=== PATIENT | female | born 1965 | race Caucasian/White ===

== ENCOUNTER 2024-03-05 15:07 | Emergency (ER) | payer BC ==
[~2024-03-05] VITALS: Ht 149.9 cm; Wt 63.5 kg
[2024-03-05 15:15] VITALS: BP_SYST 112; PULSE 82; RESP 18; TEMP 98.3; O2SAT 98
[2024-03-05] MEDS ORDERED: IBUP-1969 PO (17:35)
[2024-03-05] MEDS ORDERED: HYDR-3927 PO (17:35)
[2024-03-05 17:45] VITALS: BP_SYST 118; PULSE 72; RESP 16; TEMP 98.3; O2SAT 100
== END 2024-03-05 17:45 | disposition home or self-care (01) ==
LOC: SED 15:07
DX: S00.81XA Abrasion of other part of head, initial encounter (principal); M54.2 Cervicalgia; Z88.0 Allergy status to penicillin; Z91.040 Latex allergy status; W22.8XXA Striking against or struck by other objects, initial encounter; Y93.89 Activity, other specified; Y92.89 Other specified places as the place of occurrence of the external cause; Y99.8 Other external cause status
CPT/HCPCS: 70450-TC; 72125-TC; 99284